=== PATIENT | female | born 2000 | race African-American/Black ===

== ENCOUNTER 2022-11-01 08:15 | Inpatient (IN) | payer OTHER ==
[~2022-11-01] VITALS: Ht 167.6 cm; Wt 63.2 kg
[2022-11-01] VITALS (7 sets, daily range): BP systolic 105–130; BP diastolic 54–67
[~2022-11-01 08:15] MED LIST: ACETAMINOPHEN *IV* 1,000 MG IV ONE; ACETAMINOPHEN 1000MG 100ML IV BAG As Ordered ONE; KETOROLAC 60MG 2ML VIAL As Ordered ONE; LIDOCAINE 2% 100MG/5ML SDV (FOR ANES.) As Ordered ONE; MIDAZOLAM INJ 2MG/2ML VIAL As Ordered ONE; ONDANSETRON 4MG 2ML VIAL As Ordered ONE; ROCURONIUM BROMIDE 50MG/5ML VIAL As Ordered ONE; SUGAMMADEX SODIUM 500 MG/5 ML VIAL (BRIDION) As Ordered ONE; ceFAZolin SOD 2 GM in IV 1 EA IV ONE; fentaNYL 100 MCG/2 ML INJECTION As Ordered ONE; propofoL 200 MG/20 ML VIAL As Ordered ONE
[2022-11-01] MEDS ORDERED: LR 1,000 ML IV SCH ×2 (08:20→13:50)
[2022-11-01 09:05] LABS: HEMATOCRIT 41.6 % (36.0-47.0); MEAN CORPUSCULAR HEMOGLOBIN 30.4 pg (27.0-33.0); MEAN CORPUSCULAR HGB CONC 33.7 g/dl (32.0-36.5); MEAN CORPUSCULAR VOLUME 90.2 fl (80.0-96.0); PLATELET COUNT, AUTOMATED 323 10^3/uL (150-450); RED BLOOD COUNT 4.61 10^6/uL (4.00-5.40); WHITE BLOOD COUNT 6.6 10^3/uL (4.0-10.0)
[2022-11-01] MEDS ORDERED: ROCURONIUM BROMIDE 50MG/5ML VIAL As Ordered ONE ×2 (09:05→11:40)
[2022-11-01] MEDS ORDERED: VASOPRESSIN INJ 20UNITS/ML 1ML VIAL As Ordered ONE (10:55)
[2022-11-01] MEDS ORDERED: fentaNYL 100 MCG/2 ML INJECTION As Ordered ONE (11:38)
[2022-11-01] MEDS ORDERED: ESMOLOL INJ 100MG/10ML VIAL As Ordered ONE (11:41)
[2022-11-01] MEDS ORDERED: PHENYLephrine 500MCG 5ML (100MCG/ML) SYRINGE As Ordered ONE (12:21)
[2022-11-01] MEDS ORDERED: PROMETHAZINE 25MG/ML 1ML VIAL IV PRN (13:35)
[2022-11-01] MEDS ORDERED: oxyCODONE 5MG TAB PO PRN ×2 (13:35→13:50)
[2022-11-01] MEDS ORDERED: ONDANSETRON 4MG 2ML VIAL IV PRN ×2 (13:35→13:50)
[2022-11-01] MEDS ORDERED: METOCLOPRAMIDE INJ 10MG/2ML VIAL IV PRN (13:50)
[2022-11-01] MEDS ORDERED: HYDROMORPHONE HCL 0.5 MG/ 0.5 ML SYRINGE IV PRN (13:50)
[2022-11-01] MEDS ORDERED: fentaNYL 100 MCG/2 ML INJECTION IV PRN (13:50)
[2022-11-01] MEDS ORDERED: HYDROmorphone HCL 2MG/ML 1ML VIAL As Ordered ONE (13:53)
[2022-11-01] MEDS: LR 1,000 ML IV SCH ×2 (15:20→20:29)
[2022-11-01] MEDS ORDERED: HOME MED LIST COMPLETE! XX SCH (16:35)
[2022-11-01] MEDS: ACETAMINOPHEN 500 MG TAB PO SCH ×2 (17:52→23:39)
[2022-11-01] MEDS: KETOROLAC 30 MG/ML 1ML VIAL IV SCH (18:35)
[2022-11-01] MEDS: SIMETHICONE 80MG CHEW TAB PO PRN (19:14)
[2022-11-01] MEDS: MIRALAX *UNIT DOSE* 17GM PACKET PO PRN (19:59)
[2022-11-01] MEDS: oxyCODONE 5MG TAB PO PRN (21:33)
[2022-11-02] MEDS: KETOROLAC 30 MG/ML 1ML VIAL IV SCH ×3 (00:56→12:18)
[2022-11-02 02:00] VITALS: BP 101/59
[2022-11-02 05:45] LABS: BASO % 0.2 % (0.0-1.0); EOS % 0.1 % (0.0-3.0); HEMATOCRIT 32.8 % (36.0-47.0); LYMPH # 2.1 10^3/uL (1.5-5.0); LYMPH % 17.3 % (24.0-44.0); MEAN CORPUSCULAR HEMOGLOBIN 30.6 pg (27.0-33.0); MEAN CORPUSCULAR HGB CONC 33.8 g/dl (32.0-36.5); MEAN CORPUSCULAR VOLUME 90.4 fl (80.0-96.0); MONO # 0.9 10^3/uL (0.0-0.8); MONO % 7.8 % (2.0-8.0); NEUTROPHILS # 8.8 10^3/uL (1.5-8.5); NEUTROPHILS % 74.1 % (36.0-66.0); PLATELET COUNT, AUTOMATED 277 10^3/uL (150-450); RED BLOOD COUNT 3.63 10^6/uL (4.00-5.40); WHITE BLOOD COUNT 11.9 10^3/uL (4.0-10.0)
[2022-11-02 06:00] VITALS: BP 108/58
[2022-11-02 06:02] LABS: HEMOGLOBIN 11.1 g/dl (12.0-15.5)
[2022-11-02] MEDS: ACETAMINOPHEN 500 MG TAB PO SCH ×5 (06:28→23:03)
[2022-11-02] MEDS: SIMETHICONE 80MG CHEW TAB PO PRN (07:55)
[2022-11-02] MEDS: MIRALAX *UNIT DOSE* 17GM PACKET PO PRN ×2 (07:55→17:36)
[2022-11-02 10:00] VITALS: BP 121/57
[2022-11-02 14:00] VITALS: BP 98/54
[2022-11-02] MEDS ORDERED: HOME MED LIST COMPLETE! XX SCH (14:05)
[2022-11-02] MEDS: oxyCODONE 5MG TAB PO PRN ×2 (16:15→23:05)
[2022-11-02 18:00] VITALS: BP 107/52
[2022-11-02 22:00] VITALS: BP_SYST 119; BP_SYST 96; BP_DIAS 54; BP_DIAS 62
[2022-11-02] MEDS: IBUPROFEN 800 MG TAB PO SCH (23:06)
[2022-11-03 02:00] VITALS: BP 96/53
[2022-11-03 06:00] VITALS: BP 107/62
[2022-11-03] MEDS: ACETAMINOPHEN 500 MG TAB PO SCH (06:11)
[2022-11-03] MEDS: IBUPROFEN 800 MG TAB PO SCH (06:12)
[2022-11-03] MEDS ORDERED: MIRA1POW3 PO (07:37)
[2022-11-03] MEDS ORDERED: ACET-683 PO (07:37)
[2022-11-03] MEDS ORDERED: OXYC-517 PO (07:37)
[2022-11-03] MEDS ORDERED: IBUP80TA PO (07:37)
== END 2022-11-03 09:06 | disposition home or self-care (01) | DRG 743 ==
LOC: M OR 08:15 → EDSTATUS 09:50 → M OBS 15:20
PROVIDERS: ADMIT Obstetrics & Gynecology; ATTEND Obstetrics & Gynecology
PROC: 0UB90ZZ Excision of Uterus, Open Approach (ICD-10-PCS; principal; 2022-11-01 09:50)
DX: D25.9 Leiomyoma of uterus, unspecified (principal); K59.00 Constipation, unspecified; Z20.822 Contact with and (suspected) exposure to COVID-19

== ENCOUNTER 2023-01-23 16:35 | Emergency (ER) | payer OTHER ==
[~2023-01-23] VITALS: Ht 167.6 cm; Wt 67.3 kg
[~2023-01-23 16:35] MED LIST changes: +ACET-683 PO; -ACETAMINOPHEN *IV* 1,000 MG IV ONE; -ACETAMINOPHEN 1000MG 100ML IV BAG As Ordered ONE; +IBUP80TA PO; -KETOROLAC 60MG 2ML VIAL As Ordered ONE; -LIDOCAINE 2% 100MG/5ML SDV (FOR ANES.) As Ordered ONE; -MIDAZOLAM INJ 2MG/2ML VIAL As Ordered ONE; +MIRA1POW3 PO; -ONDANSETRON 4MG 2ML VIAL As Ordered ONE; +OXYC-517 PO; -ROCURONIUM BROMIDE 50MG/5ML VIAL As Ordered ONE; -SUGAMMADEX SODIUM 500 MG/5 ML VIAL (BRIDION) As Ordered ONE; -ceFAZolin SOD 2 GM in IV 1 EA IV ONE; -fentaNYL 100 MCG/2 ML INJECTION As Ordered ONE; -propofoL 200 MG/20 ML VIAL As Ordered ONE
[2023-01-23 21:20] LABS: BASO % 0.4 % (0.0-1.0); EOS # 0.1 10^3/uL (0.0-0.5); EOS % 0.6 % (0.0-3.0); HEMATOCRIT 42.6 % (36.0-47.0); HEMOGLOBIN 14.2 g/dl (12.0-15.5); LYMPH # 4.2 10^3/uL (1.5-5.0); MEAN CORPUSCULAR HEMOGLOBIN 30.7 pg (27.0-33.0); MEAN CORPUSCULAR HGB CONC 33.3 g/dl (32.0-36.5); MONO # 0.6 10^3/uL (0.0-0.8); MONO % 6.1 % (2.0-8.0); NEUTROPHILS # 5.5 10^3/uL (1.5-8.5); NEUTROPHILS % 52.7 % (36.0-66.0); PLATELET COUNT, AUTOMATED 359 10^3/uL (150-450); RED BLOOD COUNT 4.63 10^6/uL (4.00-5.40); WHITE BLOOD COUNT 10.4 10^3/uL (4.0-10.0)
[2023-01-23 21:26] LABS: HCG, SERUM QUANTITATIVE 2.6 MIU/ML (<4.2)
[2023-01-23 21:31] LABS: BLOOD UREA NITROGEN < 5 MG/DL (9-23); CALCIUM LEVEL 9.7 MG/DL (8.5-10.1); CARBON DIOXIDE LEVEL 26 MMOL/L (20-31); CHLORIDE LEVEL 105 MMOL/L (98-107); CREATININE FOR GFR 0.64 MG/DL (0.55-1.30); GLOMERULAR FILTRATION RATE > 60.0 (>60); GLUCOSE, FASTING 85 MG/DL (60-100); POTASSIUM SERUM 4.1 MMOL/L (3.5-5.1); SODIUM LEVEL 140 MMOL/L (136-145)
[2023-01-23] MEDS ORDERED: ISOVUE-370 76% 100ML VIAL As Ordered ONE (21:54)
[2023-01-23 22:53] VITALS: TEMP 97.9
[2023-01-24] MEDS ORDERED: MAGNESIUM CITRATE 300ML BTL PO ONE (01:10)
[2023-01-24 01:15] VITALS: BP 128/78; O2SAT 99
== END 2023-01-24 01:30 | disposition home or self-care (01) ==
LOC: M ED 16:35
DX: K59.00 Constipation, unspecified (principal)
CPT/HCPCS: 36415; 74177; 80048; 84702; 85025; 99284; Q9967